=== PATIENT | male | born 1945 | race Caucasian/White ===

== ENCOUNTER 2023-09-16 13:46 | Outpatient (CLI) | payer OTHER | END 2023-09-16 13:47 | disposition home or self-care (01) | LOC: CSHWCC 13:46 | PROVIDERS: ATTEND Preventive Medicine Undersea and Hyperbaric Medicine | DX: S31.105S Unspecified open wound of abdominal wall, periumbilic region without penetration into peritoneal cavity, sequela (principal); L24.B1 Irritant contact dermatitis related to digestive stoma or fistula | CPT/HCPCS: 99213; G0463 ==